=== PATIENT | female | born 1985 | race Caucasian/White ===

== ENCOUNTER → 2017-04-11 02:46 | Observation (INO) ==
[2017-04-11 01:37] VITALS: BP 130/84
[2017-04-11 01:48] LABS: Basophils # 0.1 K/mcL (0.0-0.2); Basophils % 0.2 %; Eosinophils # 0.1 K/mcL (0.0-0.6); Eosinophils % 0.5 %; Hematocrit 34.5 % (35.3-44.9); Hemoglobin 11.7 g/dL (11.5-15.4); Immature Granulocytes % 2.6 % (0-4); Immature Platelets 4.8 % (1.1-6.1); Lymphocytes # 4.7 K/mcL (0.6-4.6); Lymphocytes % 18.8 %; Mean Corpuscular HGB Conc 33.9 g/dL (31.6-35.5); Mean Corpuscular Hemoglobin 33.1 pg (28.0-33.3); Mean Corpuscular Volume 97.7 fL (83.0-100.0); Monocytes # 2.3 K/mcL (0.0-1.3); Monocytes % 9.4 %; Platelet Count 302 K/mcL (140-400); Red Blood Count 3.53 M/mcL (3.82-4.97); Red Cell Distribution Width 14.9 % (11.5-14.5); Segmented Neutrophils % 68.5 %
--- NOTE | 2017-04-11 02:02 | OB/GYN History & Physical ---
Date of Encounter: 04/11/17 Time of Encounter: 01:54 Assessment and Plan (1) 32 weeks gestation of Current visit: Yes Status: Acute observation for SROM Will start PCN per protocol. CBC, Betamethasone (2) premature rupture of membranes Current visit: Yes Status: Acute Large amount of clear fluid pooling noted in speculum Patient to be transferred to [facility] labor and delivery. Patient accepted by Dr. Luis. Qualifiers: PROM onset of labor timing: unspecified duration between rupture of membranes and onset of labor Qualified Code(s): O42.919 - premature rupture of membranes, unspecified as to length of time between rupture and onset of labor, unspecified trimester (3) Hepatitis C Current visit: Yes Status: Acute Qualifiers: Viral hepatitis chronicity: unspecified Hepatic coma status: without hepatic coma Qualified Code(s): B19.20 - Unspecified viral hepatitis C without hepatic coma (4) Condyloma Current visit: Yes Status: Acute anal condyloma to be surgically removed Primary c/s recommended due to risk of obstruction History of Present Illness Chief complaint: Spontaneous rupture of membranes HPI: Ms. Cameron is a 32 year old female at 32w3d gestational age presents to labor and delivery with c/o leaking fluid. Patient reports leaking started at 0045. Patient denies any vaginal bleeding or contractions. Patient reports +FM. 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 Patient has condyloma in rectum and was scheduled for surgery for removal. Primary c/s was recommended. Blood type: O+, Rubella: Immune, Hep B: nonreactive, GBS: Unknown. Patient has NKDA. Past Med Surg Social Fam HX - Past Medical History Source: patient Medical history: hepatitis Psychiatric history: no psych history - Past Surgical History Surgical History: no surgical history - Social History Smoking Status: Current every day smoker Smokeless Tobacco Status: No Alcohol use: none Activity Level: Independent ambulation Recent Out of Country Travel Within the Last 8 Weeks: No Exposure or Possible Exposure to Illness During Travel: No - Family History Mother History Unknown: Yes Obstetrical History - Pregnancies : 1 Para: 0 Term: 0 : 0 Ab's: 0 Livin Medications and Allergies Polyethylene Glycol 3350 [MiraLAX Powder Bulk 17.9 Oz] 1 scoop PO DAILY PRN # 510 gm 12/04/16 [Rx] Lidocaine Jelly 2% 1 appl TP 2-4XD PRN #30 ml 03/20/17 [Rx] Formula Tablet 1 tab PO DAILY 04/11/17 [History] No Known Allergies Allergy (Verified 05/23/15 20:44) Review of System OB - Constitutional Constitutional ROS IM: no chills, no fever(s), no headache(s) - Cardiovascular Cardiovascular: no chest pain, no palpitations, no pedal edema, no rapid heart rate, no syncope - Respiratory Respiratory: no dyspnea - Gastrointestinal Gastrointestinal: no abdominal pain, no cramping, no heartburn, no nausea, no vomiting - Genitourinary Genitourinary: no abnormal vaginal bleeding, no dysuria, no urinary frequency, no urinary hesitancy, no urinary urgency, no vaginal odor Exam - Vital Signs Vital signs: Initial Vital Signs Temp Pulse Resp BP 98.2 F 114 16 130/84 04/11/17 01:25 04/11/17 01:25 04/11/17 01:25 04/11/17 01:25 - Constitutional Constitutional: well developed, well nourished, no acute distress, average body habitus - HEENT HEENT: Normocephaly, Mucus Membranes Moist - Neck Neck exam: full ROM, supple - Lungs Respiratory exam: CTAB - Cardiovascular Cardiovascular exam: RRR, +S1, +S2 - Abdomen Abdomen: Present: bowel sounds normal, gravid, non tender - Extremities Extremities exam: full ROM, normal capillary refill, normal inspection Deep Tendon Reflex Grade: 2+ Normal - Cervix Dilation: 3 Effacement: 100 Station: -2 - Uterus Uterus exam: Present: normal size, normal contour - Anus/Rectum Anus/Rectum: Present: rectal mass (condyloma) - Comments Comments: FHR 150 bpm moderate variability +15x15 accels no decels noted. No contractions noted at this time. Results Result Diagrams: 04/11/17 01:40 Abnormal lab results WBC 24.8 K/mcL (4.3-11.1) H 04/11/17 01:40 RBC 3.53 M/mcL (3.82-4.97) L 04/11/17 01:40 Hct 34.5 % (35.3-44.9) L 04/11/17 01:40 RDW 14.9 % (11.5-14.5) H 04/11/17 01:40 Neutrophils # 17.0 K/mcL (1.6-8.9) H 04/11/17 01:40 Lymphocytes # 4.7 K/mcL (0.6-4.6) H 04/11/17 01:40 Monocytes # 2.3 K/mcL (0.0-1.3) H 04/11/17 01:40 All other labs normal. - VTE Reasons for not Prescribing Prophylaxis: Treatment not Indicated - Low risk for VTE
--- NOTE | 2017-04-11 02:38 | OB Labor Progress Note ---
Date of Encounter: 04/11/17 Time of Encounter: 02:36 Labor Progress Note - Subjective Subjective: transport here to take patient to labor and delivery at [facility]. Patient continue to denies contractions and reports +FM. - Cervix Cervix: 3/100/-2 - Heart Tones Heart Tones: 155 bpm moderate variability - [place]: no contractions noted at this time. - Interventions Interventions: SVE, report given to transport team - Plan Plan: Transfer to [facility] labor and delivery for delivery
--- NOTE | 2017-04-11 02:42 | Discharge Summary ---
Date of Encounter: 04/11/17 Time of Encounter: 02:42 - Discharge Diagnosis (1) 32 weeks gestation of Priority: Primary Status: Acute (2) premature rupture of membranes Priority: Secondary Status: Acute Qualifiers: PROM onset of labor timing: unspecified duration between rupture of membranes and onset of labor Qualified Code(s): O42.919 - premature rupture of membranes, unspecified as to length of time between rupture and onset of labor, unspecified trimester (3) Hepatitis C Priority: Secondary Status: Acute Qualifiers: Viral hepatitis chronicity: unspecified Hepatic coma status: without hepatic coma Qualified Code(s): B19.20 - Unspecified viral hepatitis C without hepatic coma (4) Condyloma Priority: Secondary Status: Acute - Discharge Medications Home Medications: Polyethylene Glycol 3350 [MiraLAX Powder Bulk 17.9 Oz] 1 scoop PO DAILY PRN # 510 gm 12/04/16 [Rx] Lidocaine Jelly 2% 1 appl TP 2-4XD PRN #30 ml 03/20/17 [Rx] Formula Tablet 1 tab PO DAILY 04/11/17 [History] Allergies/Adverse Reactions: No Known Allergies Allergy (Verified 05/23/15 20:44) Data Procedures and tests throughout hospitalization: Laboratory Tests 04/11/17 01:40 WBC 24.8 H RBC 3.53 L Hgb 11.7 Hct 34.5 L MCV 97.7 MCH 33.1 MCHC 33.9 RDW 14.9 H Plt Count 302 MPV 10.0 Immature Gran % 2.6 Seg Neutrophils % 68.5 Lymphocytes % 18.8 Monocytes % 9.4 Eosinophils % 0.5 Basophils % 0.2 Neutrophils # 17.0 H Lymphocytes # 4.7 H Monocytes # 2.3 H Eosinophils # 0.1 Basophils # 0.1 Immature Plt Fraction 4.8 Labs on day of discharge: Labs from last 24 hours 04/11/17 01:40 WBC 24.8 H RBC 3.53 L Hgb 11.7 Hct 34.5 L MCV 97.7 MCH 33.1 MCHC 33.9 RDW 14.9 H Plt Count 302 MPV 10.0 Immature Gran % 2.6 Seg Neutrophils % 68.5 Lymphocytes % 18.8 Monocytes % 9.4 Eosinophils % 0.5 Basophils % 0.2 Neutrophils # 17.0 H Lymphocytes # 4.7 H Monocytes # 2.3 H Eosinophils # 0.1 Basophils # 0.1 Immature Plt Fraction 4.8 Date of admission: 04/11/17 01:12 Discharging clinician: Clau Glaser Anticipated date of discharge: 04/11/17 - Patient Status Disposition: Transfer Other Condition: Good - Discharge Instructions - Diet and Activity Diet: other (NPO) Hospital Course INTENSIVE CARE NURSE Hospital course: Patient transferred to [facility] labor and delivery for rupture of membranes at 32w3d gestational age. Time Attestation: Total time spent providing and/or coordinating discharge services: Time Spent: Less than 30 minutes Exam - Constitutional Vitals: Temp Pulse Resp BP 98.2 F 114 16 130/84 04/11/17 01:25 04/11/17 01:25 04/11/17 01:25 04/11/17 01:25 - VTE Reasons for not Prescribing Prophylaxis: Treatment not Indicated - Low risk for VTE
[~2017-04-11 02:46] MED LIST: Betamethasone Acet/SodPhos 6 MG/ML MDV IM SCH; Penicillin G Potassium 5,000,000 UNIT in D5% in Water (Mini-Bag+) 100 ML IVPB ONE; Ringers Solution, Lactated 1,000 ML IVC SCH
== END | disposition short-term general hospital (02) ==
LOC: 1NENULAB
PROVIDERS: ADMIT Obstetrics & Gynecology; ATTEND Obstetrics & Gynecology